=== PATIENT | male | born 1985 | race Caucasian/White ===

== ENCOUNTER 2022-10-22 18:33 | Emergency (ER) | payer OTHER ==
[2022-10-22 18:57] VITALS: BP 113/68; PULSE 75; RESP 18; TEMP 98.6; BMI 21.6
== END 2022-10-23 00:03 | disposition home or self-care (01) ==
LOC: JER 18:33
DX: M25.561 Pain in right knee (principal); M25.461 Effusion, right knee; R50.9 Fever, unspecified
CPT/HCPCS: 73562-TC-RT-FY; 93971-TC; 99284-25

== ENCOUNTER 2023-08-05 10:57 | Day surgery (SDC) | payer OTHER ==
[2023-07-31 12:07] VITALS: BMI 20.9
== END 2023-08-05 11:20 | disposition home or self-care (01) ==
LOC: FASU-ENDO 10:57
PROVIDERS: ATTEND Internal Medicine Gastroenterology
PROC: 0DJ08ZZ Inspection of Upper Intestinal Tract, Via Natural or Artificial Opening Endoscopic (ICD-10-PCS; principal; 2023-08-05)
DX: Z53.8 Procedure and treatment not carried out for other reasons (principal); R10.13 Epigastric pain

== ENCOUNTER 2023-09-02 11:11 | Day surgery (SDC) | payer OTHER ==
[2023-09-01 16:31] VITALS: BMI 20.9
[2023-09-02 13:03] VITALS: RESP 18; TEMP 97.2
[2023-09-02 13:19] VITALS: BP 110/52; PULSE 74
== END 2023-09-02 13:19 | disposition home or self-care (01) ==
LOC: FASU-ENDO 11:11
PROVIDERS: ATTEND Internal Medicine Gastroenterology
PROC: 0DB68ZX Excision of Stomach, Via Natural or Artificial Opening Endoscopic, Diagnostic (ICD-10-PCS; 2023-09-02)
PROC: 0DB48ZX Excision of Esophagogastric Junction, Via Natural or Artificial Opening Endoscopic, Diagnostic (ICD-10-PCS; 2023-09-02)
PROC: 0DB98ZX Excision of Duodenum, Via Natural or Artificial Opening Endoscopic, Diagnostic (ICD-10-PCS; principal; 2023-09-02 12:43)
DX: K29.50 Unspecified chronic gastritis without bleeding (principal); K20.90 Esophagitis, unspecified without bleeding; R10.13 Epigastric pain
CPT/HCPCS: 88305-TC; 88342-TC